=== PATIENT | female | born 1965 | race Caucasian/White ===

== ENCOUNTER 2020-12-09 20:30 | Emergency (ER) | payer MEDICAID, OTHER ==
[2020-12-09 21:15] LABS: BLOOD UREA NITROGEN,BUN 16 mg/dL (7.0-18.0); CARBON DIOXIDE,CO2 29.5 mmol/L (21.0-32.0); CHLORIDE,CL 101 mmol/L (98-107); GLUCOSE RANDOM 102 mg/dL (74-106); POTASSIUM,K 3.6 mmol/L (3.5-5.1); SODIUM,NA 139 mmol/L (136-145)
--- NOTE | 2020-12-09 21:25 | CR ---
INDICATION: Chest pain TECHNIQUE: Portable upright AP view of the chest COMPARISON: None FINDINGS: The lungs are clear. There is no sizable pleural effusion or pneumothorax. The cardiomediastinal silhouette is normal. The visualized osseous structures are unremarkable. IMPRESSION: No acute intrathoracic process. Dictated by Dona George MD @ 12/09/2020 9:23:[address] Dona George @ Dec 09 2020 9:23PM
--- NOTE | 2020-12-09 21:59 | EDM.PDOC ---
ED HPI GENERAL MEDICAL PROBLEM - General Chief Complaint: Chest Pain Stated Complaint: CHEST PAINS Time Seen by Provider: 12/09/20 20:54 - History of Present Illness INITIAL COMMENTS - FREE TEXT/NARRATIVE: CHIEF COMPLAINT(S): Chest pain HISTORY OF PRESENT ILLNESS: This is a 55-year-old woman with nonsignificant past medical history who presents to the emergency department with chest pain. The patient states that for approximately 1 week now she has been experiencing chest tightness on the right side of her chest rated 7 out of 10 without any radiation. She states that it did radiate to her right arm today though. She states she did have some mild nausea but denies any vomiting or diaphoresis. She states that the same thing happened approximately 1 week ago and she has been experiencing a room spinning sensation when she wakes up. She denies any dizziness or room spinning with exertion the only happens when she wakes up. She states that she does take Ambien but she has been taking it for years. She denies any dyspnea, lower extremity edema, recent travel, recent surgery or prior history of DVT or PE. She states that the symptoms come and go and they have been different each time. There is no aggravating factors or relieving factors. She states that this may have something to do with her dad passing away. She states that she does have a family history of CAD and CVA in her mother. She denies any effective caffeine use. She denies any other symptoms. REVIEW OF SYSTEMS: Constitutional: Denies fever, chills. Eyes: Denies eye pain Ears, Nose, Mouth, & Throat: Denies earache Cardiovascular: Right-sided chest pain respiratory: Denies shortness of breath Gastrointestinal: Nausea. Denies vomiting, diarrhea, hematochezia. Genitourinary: Denies hematuria Skin:Denies a rash MSK: Denies joint pain Neurological: Positive for dizziness. Denies blurred vision, numbness, tingling, weakness Psychiatric: Denies depression PAST MEDICAL HISTORY: As per history of present illness and as reviewed below otherwise noncontributory. SURGICAL HISTORY: As per history of present illness and as reviewed below otherwise noncontributory. SOCIAL HISTORY: As per history of present illness and as reviewed below otherwise noncontributory. FAMILY HISTORY: As per history of present illness and as reviewed below otherwise noncontributory. EXAMINATION OF ORGAN SYSTEMS/BODY AREAS: Constitutional: Blood pressure is 130/85, heart rate 97, respiratory rate 18 with an oxygen saturation of 97% on room air. Temperature 36.1 General: Overall well-appearing woman who is in no acute distress psychiatric: Appropriate mood and affect. Eyes: No scleral icterus or conjunctival erythema ENMT: Moist mucous membranes. No pharyngeal erythema Cardiovascular: Regular, rate, and rhythm. No gallops, murmurs, or rubs. Bilateral upper extremity pulses symmetric and intact. No peripheral edema. No JVD. Respiratory: Lungs clear to auscultation bilaterally. No wheezes, rales, or rhonchi. Gastrointestinal: Soft, non-tender, non-distended. Normoactive bowel sounds Genitourinary: No suprapubic tenderness Musculoskeletal: Normal range of motion. Skin: No lesions or abrasions. Neurological: AOx4. CN grossly intact. Strength 5/5 in bilateral upper and lower extremity. Sensation is intact bilaterally in upper and lower extremity. Gait appears normal. Finger to nose, heel to chung, rapid alternating movements intact. MEDICAL DECISION MAKING AND COURSE IN THE ED WITH INTERPRETATION/REVIEW OF DIAGNOSTIC STUDIES: This is a 55-year-old woman without any significant past medical history comes to the emergency department with intermittent right-sided chest pain that radiates down her arm associated with nausea and a spinning sensation when she wakes up. This was all exacerbated by her father passing away. This could be secondary to panic attack however patient does have a family history of cardiac disease. We will obtain a cardiac work-up. EKG was obtained which did not reveal any acute signs of ischemia. Wells Criteria Clinical signs/symptoms of DVT: No (0) PE #1 Dx or equally likely: No (0) Heart Rate >100: No (0) Immobilization for 3 days or surgery in last month: No (0) Previously Dx PE or DVT: No (0) Hemoptysis: No (0) Malignancy w/ Tx within 6 months or palliative: No (0) Wells Score: 0 low risk Heart Score History: Moderately Suspicious (1) ECG: Normal (0) Age: 45-64 (1) Risk Factors: No known risk factors (0) Initial Troponin: </= normal limit (0) Total Score: 2 -> Low risk Laboratory: CBC is unremarkable. CMP is unremarkable. TSH is normal. Troponin is negative. The radiological images were viewed by myself along with reading the report from the radiologist. Chest x-ray does not reveal any acute cardiopulmonary process. Given the chest pain has been going on for approximately 1 week I did not leave a repeat troponin is necessary. I did discuss with the patient follow-up with cardiology and follow-up with psychology. Patient was asymptomatic on my examination. She will this on a quick follow-up list for cardiology. Patient is amenable discharge at the time and was given strict return precautio DISPOSITION: The patient was discharged home in stable condition. The patient will follow up with cardiology and psychology CONDITION: Fair PROCEDURES: None FINAL IMPRESSION(S)/DIAGNOSES: 1. Acute chest pain Nakul Castillo M.D. chest Pain Score (Numeric/FACES): 7 - Related Data Allergies Allergy/AdvReac Type Severity Reaction Status Date / Time Penicillins Allergy Anaphylactic Verified 12/09/20 21:05 Shock Home Meds: Home Meds ALPRAZolam [Alprazolam] 0.5 mg PO BID PRN 05/09/16 [History] Estrogens,Conj/Bazedoxifene [Duavee 0.45-20 mg Tablet] 1 tab PO DAILY 05/09/16 [History] Zolpidem Tartrate [Zolpidem Tartrate ER] 12.5 mg PO BEDTIME PRN 05/09/16 [History] Past Medical History HEENT History: Reports: None Cardiovascular History: Reports: None Respiratory History: Reports: None Gastrointestinal History: Reports: Irritable Bowel Syndrome Genitourinary History: Reports: None Musculoskeletal History: Reports: None Neurological History: Reports: Migraines Psychiatric History: Reports: Anxiety Endocrine/Metabolic History: Reports: None Hematologic History: Reports: Blood Transfusion(s) Immunologic History: Reports: None Oncologic (Cancer) History: Reports: Basal Cell Carcinoma Dermatologic History: Reports: Other (See Below) Other Dermatologic History: basal cell carcinoma of chest - Past Surgical History Female Surgical History: Reports: Tubal Ligation Dermatological Surgical History: Reports: Plastic Surgical Reconstruction/Repair ED ROS GENERAL - Review of Systems Review Of Systems: See Below ED EXAM, GENERAL - Physical Exam Exam: See Below Course - Vital Signs Last Recorded V/S: Last Vital Signs Temp 36.1 C 12/09/20 20:45 Pulse 94 12/09/20 22:30 Resp 18 12/09/20 20:45 BP 120/76 12/09/20 22:30 Pulse Ox 95 12/09/20 22:30 - Orders/Labs/Meds Labs: Laboratory Tests 12/09/20 12/09/20 12/09/20 Range/Units 20:50 20:50 20:50 WBC 8.81 (4.0-11.0) K/uL RBC 4.94 (4.30-5.90) M/uL Hgb 15.5 (12.0-16.0) g/dL Hct 44.5 (36.0-46.0) % MCV 90.1 (80.0-98.0) fL MCH 31.4 (27.0-32.0) pg MCHC 34.8 (31.0-37.0) g/dL RDW Std Deviation 42.7 (28.0-62.0) fl RDW Coeff of Umang 13 (11.0-15.0) % Plt Count 228 (150-400) K/uL MPV 11.80 (7.40-12.00) fL Neut % (Auto) 68.9 (48.0-80.0) % Lymph % (Auto) 20.7 (16.0-40.0) % [place] % (Auto) 9.8 (0.0-15.0) % Eos % (Auto) 0.5 (0.0-7.0) % Baso % (Auto) 0.1 (0.0-1.5) % Neut # (Auto) 6.1 H (1.4-5.7) K/uL Lymph # (Auto) 1.8 (0.6-2.4) K/uL [place] # (Auto) 0.9 H (0.0-0.8) K/uL Eos # (Auto) 0.0 (0.0-0.7) K/uL Baso # (Auto) 0.0 (0.0-0.1) K/uL Nucleated RBC % 0.0 /100WBC Nucleated RBCs # 0 K/uL Sodium 139 (136-145) mmol/L Potassium 3.6 (3.5-5.1) mmol/L Chloride 101 (98-107) mmol/L Carbon Dioxide 29.5 (21.0-32.0) mmol/L BUN 16 (7.0-18.0) mg/dL Creatinine 1.0 (0.6-1.0) mg/dL Est Cr Clr Drug Dosing 50.86 mL/min Estimated GFR (MDRD) 57.8 ml/min Glucose 102 (74-106) mg/dL Calcium 9.0 (8.5-10.1) mg/dL Total Bilirubin 0.4 (0.2-1.0) mg/dL AST 19 (15-37) IU/L ALT 30 (14-63) IU/L Alkaline Phosphatase 115 (46-116) U/L Troponin I < 0.050 (0.000-0.056) ng/mL Total Protein 8.1 (6.4-8.2) g/dL Albumin 4.0 (3.4-5.0) g/dL Globulin 4.1 H (2.6-4.0) g/dL Albumin/Globulin Ratio 1.0 (0.9-1.6) Free T4 1.13 (0.76-1.46) ng/dL TSH 3rd Generation 0.81 (0.36-3.74) uIU/mL Departure - Departure Time of Disposition: 05:00 Disposition: Home, Self-Care 01 Condition: Fair Clinical Impression: Atypical chest pain - Discharge Information *PRESCRIPTION DRUG MONITORING PROGRAM REVIEWED*: No *COPY OF PRESCRIPTION DRUG MONITORING REPORT IN PATIENT RICK: No Instructions: Managing Loss, Adult, Nonspecific Chest Pain, Adult, [id number], Complicated Grief, Managing Anxiety, Adult Referrals: Hue Carlos DO [Primary Care Provider] - Oneil Espinoza MD [Physician] - Forms: ED Department Discharge Additional Instructions: You evaluate today on an emergent basis. At this time your relatively low risk for any heart issues. However I do recommend that you follow-up with cardiology. They may recommend further outpatient work-up. In addition given the recent loss of your father this could be due to the anxiety and stress and grieving surrounding this. I do recommend that you follow-up with behavioral health for continued management of this. If you have any worsening of your symptoms please return to the emergency department. Cardiology follow up is provided in the contact information. Please make an appointment. [facility] [phone] [facility] - [facility] [address] [place] [id number] [address] The patient is informed of any results of their evaluation and diagnostic workup and all questions are answered. They are given discharge instructions and return precautions. The patient is stable for discharge. The patient states they understand and agree with the plan and that they will return if their symptoms get worse or if they have any new concerns. The following information is given to patients seen in the emergency department who are being discharged to home. This information is to outline your options for follow-up care. We provide all patients seen in our emergency department with a follow-up referral. The need for follow-up, as well as the timing and circumstances, are variable depending upon the specifics of your emergency department visit. If you don't have a primary care physician on staff, we will provide you with a referral. We always advise you to contact your personal physician following an emergency department visit to inform them of the circumstance of the visit and for follow-up with them and/or the need for any referrals to a consulting specialist. The emergency department will also refer you to a specialist when appropriate. This referral assures that you have the opportunity for follow-up care with a specialist. All of these measure are taken in an effort to provide you with optimal care, which includes your follow-up. Under all circumstances we always encourage you to contact your private physician who remains a resource for coordinating your care. When calling for follow-up care, please make the office aware that this follow-up is from your recent emergency room visit. If for any reason you are refused follow-up, please contact the [facility] Emergency Department at and asked to speak to the emergency department charge nurse. Sepsis Event Note (ED) - Evaluation Sepsis Screening Result: No Definite Risk
[2020-12-10 04:57] VITALS: BP 120/76; PULSE 94
--- NOTE | 2020-12-10 05:52 | PCM.EKG ---
#1 Interpretation EKG Date: 12/09/20 Time: 20:48 Rhythm: NSR Rate (Beats/Min): 94 [place]: Normal P-Wave: Present QRS: Normal ST-T: Normal QT: Normal Comparison: NA - No Prior EKG EKG Interpretation Comments: SinuS rhythm
== END 2020-12-09 22:30 | disposition home or self-care (01) ==
LOC: MW.ED 20:30
DX: R07.89 Other chest pain (principal); Z88.0 Allergy status to penicillin
CPT/HCPCS: 36415; 71045; 71045-26; 80053; 84439; 84443; 84484; 85025; 93005; 99283; 99285-25

== ENCOUNTER 2021-09-19 13:47 | Emergency (ER) | payer OTHER ==
[2021-09-19] MEDS ORDERED: Ketorolac 30 MG/ML SDV IVPUSH ONE (17:05)
[2021-09-19] MEDS ORDERED: Sodium Chloride 0.9% 2.5 ML Syringe FLUSH PRN (17:05)
[2021-09-19] MEDS ORDERED: Sodium Chloride 0.9% 1,000 ML IV ONE (17:05)
[2021-09-19] MEDS ORDERED: Sodium Chloride 0.9% 10 ML Syringe FLUSH PRN (17:05)
[2021-09-19] MEDS ORDERED: Ondansetron 4 MG/2 ML SDV IVPUSH ONE (17:05)
[2021-09-19 18:26] LABS: BLOOD UREA NITROGEN,BUN 16 mg/dL (7.0-18.0); CARBON DIOXIDE,CO2 26.1 mmol/L (21.0-32.0); CHLORIDE,CL 100 mmol/L (98-107); GLUCOSE RANDOM 84 mg/dL (74-106); POTASSIUM,K 4.2 mmol/L (3.5-5.1); SODIUM,NA 138 mmol/L (136-145)
[2021-09-19 18:51] LABS: CORONAVIRUS COVID-19 NAA NEGATIVE (NEGATIVE); INFLUENZA A NAA POSITIVE (NEGATIVE); INFLUENZA B NAA NEGATIVE (NEGATIVE)
[2021-09-19 19:34] VITALS: BP 117/68; PULSE 87
== END 2021-09-19 19:34 | disposition home or self-care (01) ==
LOC: MW.ED 13:47
DX: J10.1 Influenza due to other identified influenza virus with other respiratory manifestations (principal); Z88.0 Allergy status to penicillin; Z86.16 Personal history of COVID-19; Z20.822 Contact with and (suspected) exposure to COVID-19
CPT/HCPCS: 0240U; 36415; 71045; 80053; 85025; 96374; 96375; 99283; J1885; J2405; J7030

== ENCOUNTER 2022-02-13 10:07 | Day surgery (SDC) | payer OTHER ==
[2022-02-13] MEDS: Lactated Ringers 1,000 ML IV SCH (10:29)
[2022-02-13] MEDS ORDERED: Propofol 200 MG/20 ML SDV ONE (11:18)
[2022-02-13] MEDS ORDERED: Lidocaine 2% 5 ML SDV ONE (12:14)
[2022-02-13] MEDS ORDERED: fentaNYL 100 MCG/2 ML SDV ONE (12:15)
[2022-02-13] MEDS ORDERED: Ondansetron 4 MG/2 ML SDV IVPUSH PRN (13:49)
[2022-02-13] MEDS ORDERED: Acetaminophen 325 MG Tab PO PRN (13:49)
[2022-02-13] MEDS ORDERED: Lactated Ringers 1,000 ML IV SCH (14:00)
[2022-02-13 14:40] VITALS: BP 118/72; PULSE 68
== END 2022-02-13 15:31 | disposition home or self-care (01) ==
LOC: MW.SDS 10:07
PROVIDERS: ATTEND Surgery
DX: Z12.11 Encounter for screening for malignant neoplasm of colon (principal); D12.2 Benign neoplasm of ascending colon; K29.50 Unspecified chronic gastritis without bleeding; F41.9 Anxiety disorder, unspecified; G43.909 Migraine, unspecified, not intractable, without status migrainosus; Z88.0 Allergy status to penicillin; Z79.899 Other long term (current) drug therapy; Z98.890 Other specified postprocedural states; Z83.79 Family history of other diseases of the digestive system; Z80.52 Family history of malignant neoplasm of bladder
CPT/HCPCS: 00813; J2704; J3010; J7120

== ENCOUNTER 2023-07-26 01:32 | Emergency (ER) | payer OTHER ==
[2023-07-26 02:51] VITALS: BP 124/74; PULSE 86
== END 2023-07-26 05:18 | disposition left against medical advice (07) ==
LOC: MW.ED 01:32
DX: S06.0X1A Concussion with loss of consciousness of 30 minutes or less, initial encounter (principal); S00.83XA Contusion of other part of head, initial encounter; Z88.0 Allergy status to penicillin; Z86.16 Personal history of COVID-19; W01.198A Fall on same level from slipping, tripping and stumbling with subsequent striking against other object, initial encounter
CPT/HCPCS: 70450; 70450-26; 70486; 70486-26; 72125; 72125-26; 99282; 99284